=== PATIENT | female | born 1970 | race Caucasian/White ===

== ENCOUNTER 2018-03-25 17:26 | Emergency (ER) | payer MEDICAID ==
[~2018-03-25] VITALS: Ht 167.6 cm; Wt 68.0 kg
[2018-03-25] MEDS ORDERED: METHOCARBAMOL 500 MG TAB PO ONE (18:30)
[2018-03-25] MEDS ORDERED: KETOROLAC TROMETH 60MG/2ML VIAL IM ONE (18:30)
[2018-03-25 18:47] VITALS: BP 126/91
== END 2018-03-25 20:19 | disposition home or self-care (01) ==
LOC: ER 17:26 → EDBD 17:26 → ER 20:19
DX: S12.690A Other displaced fracture of seventh cervical vertebra, initial encounter for closed fracture (principal); V49.49XA Driver injured in collision with other motor vehicles in traffic accident, initial encounter; Y93.89 Activity, other specified; Y99.8 Other external cause status; Y92.89 Other specified places as the place of occurrence of the external cause; Z88.6 Allergy status to analgesic agent
CPT/HCPCS: 70450; 72125; 81025; 96372; 99284; J1885